=== PATIENT | female | born 1965 | race Caucasian/White ===

== ENCOUNTER → 2016-11-04 | Day surgery (SDC) | payer BC ==
[2016-10-29 13:50] VITALS: BMI 22.0
[~2016-11-04] VITALS: Ht 162.6 cm; Wt 59.1 kg
[~2016-11-04] MED LIST: ESCI1TAB10 PO; IBAN150T PO; LIDOCAINE HCL 2% 2 ML VIAL (20MG/ML) ONE; MIDAZOLAM HCL 1 MG/ML 2ML VIAL ONE; ONDANSETRON INJ 2 MG/ML 2 ML VIAL ONE; PROPOFOL IV EMULSION 10 MG/ML 20 ML VIAL IV ONE; SODIUM CHLORIDE 0.9% 500ML 500 ML IV ONE
[2016-11-04 12:55] VITALS: Ht 162.6 cm; Wt 59.1 kg
[2016-11-04 13:04] VITALS: TEMP 36.3
--- NOTE | 2016-11-04 13:04 | Endo History and Physical ---
History & Physical Date of Service: Nov 04, 2016. Chief Complaint: Screening Referring Physician: DAMION Partida History of Present Illness 50 yo CF who presents for screening colonoscopy. Past Surgical History Hx Cardiac Surgery: No Hx Internal Defibrillator: No Hx Pacemaker: No Hx Abdominal Surgery: Yes (JAMESON) Hx of Implantable Prosthesis: No Hx Post-Op Nausea and Vomiting: Yes Hx Cancer Surgery: No Hx Thoracic Surgery: No Hx Orthopedic: Yes (LT TKA, C5-6 FUSION (FULL ROM), RT FOOT S/P BREAK WITH PLATE) Hx Urinary Tract Surgery: No Family History None Social History Smoking Status: Never Smoker Hx Substance Use: No Hx Alcohol Use: No Allergies Coded Allergies: Codeine (Verified Allergy, Mild, N/V, 11/04/16) Current Medications Reported Home Medications Medications Dose Route/Sig Max Daily Dose Days Date Category Lexapro (Escitalopram Oxalate) 20 Mg Tab 20 Mg PO HS 10/29/16 Reported Boniva (Ibandronate Sodium) 150 Mg Tab 150 Mg PO MONTHLY 10/29/16 Reported Vital Signs Weight (Kilograms): 59.09 Height (Feet): 5 Height (Inches): 4 Physical Exam General Appearance: WD/WN, no apparent distress Respiratory/Chest: Auscultation: breath sounds normal Cardiovascular: Heart Auscultation: RRR Abdomen: Bowel Sounds: normal Inspection & Palpation: soft, non-distended, no tenderness, guarding & rebound Assessment and Plan Assessment: 50 yo CF who presents for screening colonoscopy. Plan: Proceed with colonoscopy.
--- NOTE | 2016-11-04 14:00 | GI REPORT ---
Procedure Date: 11/04/2016 1:38 PM Procedure: Colonoscopy Indications: Screening for colorectal malignant neoplasm Medicines: Monitored Anesthesia Care Complications: No immediate complications. Estimated Blood Loss: Estimated blood loss: none. Procedure: Pre-Anesthesia Assessment: - Prior to the procedure, a History and Physical was performed, and patient medications and allergies were reviewed. The patient's tolerance of previous anesthesia was also reviewed. The risks and benefits of the procedure and the sedation options and risks were discussed with the patient. All questions were answered, and informed consent was obtained. Prior Anticoagulants: The patient has taken no previous anticoagulant or antiplatelet agents. ASA Grade Assessment: II - A patient with mild systemic disease. After reviewing the risks and benefits, the patient was deemed in satisfactory condition to undergo the procedure. After I obtained informed consent, the scope was passed under direct vision. Throughout the procedure, the patient's blood pressure, pulse, and oxygen saturations were monitored continuously. The On-site loaner was introduced through the anus with the intention of advancing to the ileum. The scope was advanced to the transverse colon before the procedure was aborted. Medications were given. The colonoscopy was performed without difficulty. The patient tolerated the procedure well. The quality of the bowel preparation was poor. No anatomical landmarks were photographed. Findings: A large amount of semi-solid solid stool was found in the entire colon, precluding visualization. Lavage of the area was performed using a large amount, resulting in incomplete clearance with continued poor visualization. Impression: - Preparation of the colon was poor. - Stool in the entire examined colon. - No specimens collected. Recommendation: - Resume previous diet. - Continue present medications. - Repeat colonoscopy in 3 months because the bowel preparation was poor. - Return to primary care physician as previously scheduled. Adalid Ramirez DO 11/04/2016 2:00:01 PM This report has been signed electronically. Note Initiated On: 11/04/2016 1:38 PM I attest to the content of the Intraoperative Record and orders documented therein, exceptions below
--- NOTE | 2016-11-04 14:02 | Discharge Instructions ---
Endoscopy Patient Instructions Date / Procedure(s) Performed Nov 04, 2016. Colonoscopy Allergy Information Coded Allergies: Codeine (Verified Allergy, Mild, N/V, 11/04/16) Discharge Date / Findings Nov 04, 2016. Poor bowel prep Medication Instructions OK to resume all medications today as prescribed. Reported Home Medications Medications Dose Route/Sig Max Daily Dose Days Date Category Lexapro (Escitalopram Oxalate) 20 Mg Tab 20 Mg PO HS 10/29/16 Reported Boniva (Ibandronate Sodium) 150 Mg Tab 150 Mg PO MONTHLY 10/29/16 Reported Provider Instructions Activity Restrictions - No exercising or heavy lifting for 24 hours. - Do not drink alcohol the day of the procedure. - Do not drive a car or operate machinery until the day after the procedure. - Do not make any important decisions or sign important papers in 24 hours after the procedure. Following Day: - Return to full activity which may include returning to work/school. Diet Start your diet with liquids and light foods (jello, soup, juice, toast). Then eat your usual diet if not nauseated. Treatment For Common After Affects For mild abdominal pain, bloating, or excessive gas: - Rest - Eat lightly - Lie on right side Repeat colonoscopy in 3 months due to poor prep Follow-Up Information Follow-up with RENITA MARIE as scheduled Anesthesia Information What You Should Know You have had a procedure that required some medicine to reduce anxiety and discomfort. This treatment is called moderate sedation. After receiving the treatment, you may be sleepy, but you will be able to breathe on your own. The effects of the treatment may last for several hours. Follow these instructions along with Activity/Diet recommendations noted above: * Do NOT do anything where dizziness or clumsiness would be dangerous. * Rest quietly at home today, then you can be up and about tomorrow. * Have a responsible person stay with you the rest of today. * You may have had an I.V. today. If so, you may take the dressing off later today. Recommendations Call your doctor if: * Trouble breathing * Continuous vomiting for more than 24 hours * Temperature above 101 degrees * Severe abdominal pain or bloating * Pain not relieved by pain medicine ordered * There is increased drainage or redness from any incision * A large amount of rectal bleeding greater than 2-3 tablespoons. (If you had a polyp/s removed or have hemorrhoids, a small amount of blood - from the rectum is to be expected.) * You have any unanswered questions or concerns. IN THE EVENT OF A SERIOUS EMERGENCY, GO TO THE NEAREST EMERGENCY ROOM Your discharge instructions were prepared by provider Adalid Ramirez. Patient Instructions Signature Page Miriam Wayandrew Patient (or Guardian) Signature/Date: I have read and understand the instructions given to me by my caregivers. Caregiver/RN/Doctor Signature/Date: The above-named patient and/or guardian has received patient instructions on this date. + Original Patient Signature Page (only) stays with chart. Please make copy for patient.
[2016-11-04 14:21] VITALS: BP 129/65; PULSE 72; O2SAT 98
--- NOTE | 2016-11-04 14:41 | Anesthesiology Progress Note ---
Anesthesia Post Op Note Date & Time Nov 04, 2016 at 14:41 Vital Signs Pain Intensity: 0 Vital Signs Past 12 Hours Date Time Temp Pulse Resp B/P Pulse Ox O2 Delivery O2 Flow Rate FiO2 11/04/16 14:21 72 16 129/65 98 Room Air 11/04/16 14:10 76 16 126/76 97 Room Air 11/04/16 13:55 77 16 122/74 96 Room Air 11/04/16 13:04 36.3 64 16 119/72 98 Room Air Notes Mental Status: alert / awake / arousable, participated in evaluation Pt Amnestic to Procedure: Yes Nausea / Vomiting: adequately controlled Pain: adequately controlled Airway Patency, RR, SpO2: stable & adequate BP & HR: stable & adequate Hydration State: stable & adequate Anesthetic Complications: no major complications apparent
== END | disposition home or self-care (01) ==
LOC: C.GI 12:40
PROVIDERS: ATTEND Internal Medicine
DX: Z12.11 Encounter for screening for malignant neoplasm of colon (principal)

== ENCOUNTER → 2017-01-14 | Outpatient (CLI) | payer BC ==
[~2017-01-14] MED LIST changes: -LIDOCAINE HCL 2% 2 ML VIAL (20MG/ML) ONE; -MIDAZOLAM HCL 1 MG/ML 2ML VIAL ONE; -ONDANSETRON INJ 2 MG/ML 2 ML VIAL ONE; -PROPOFOL IV EMULSION 10 MG/ML 20 ML VIAL IV ONE; -SODIUM CHLORIDE 0.9% 500ML 500 ML IV ONE
[2017-01-14 17:34] LABS: BASO % 0.3 %; BASO ABS # 0.02 K/uL (0-0.2); COMPLETE YES; EOS % 1.1 %; HEMATOCRIT 40.5 % (37-47); IG% 0.1 %; LYMPH % 23.5 %; LYMPH ABS # 1.69 K/uL (1.2-3.4); MEAN CELL VOLUME 89.6 fL (80-100); MEAN CORPUSCULAR HGB CONC 32.3 g/dl (32-36); MEAN PLATELET VOLUME 9.5 fL (7.4-10.4); MONO % 11.3 %; NEUT % 63.7 %; PLATELET COUNT 491 K/uL (130-400); RED BLOOD COUNT 4.52 M/uL (4.2-5.4); WHITE BLOOD COUNT 7.18 K/uL (4.8-10.8)
== END | disposition home or self-care (01) ==
LOC: C.LABBFT 15:06
PROVIDERS: ATTEND Nurse Practitioner
DX: K90.0 Celiac disease (principal); M81.0 Age-related osteoporosis without current pathological fracture

== ENCOUNTER → 2017-12-25 | Outpatient (CLI) | payer BC ==
[~2017-12-25] MED LIST changes: +CALC600T9 PO; +CLB/200 PO; +VITAMIN B12 INJ
--- NOTE | 2017-12-25 17:13 | DIAGNOSTIC IMAGING REPORT ---
BONE SCAN 3 PHASE LIMITED CLINICAL HISTORY: 52 years-old Female presenting with LOOSE TKA. TECHNIQUE: Following the IV administration of 27 mCi of technetium 99m MDP, three-phase bone scan of the knees was performed. Anterior flow images as well as anterior and posterior blood pool phase images were acquired. Bone phase imaging of knees was performed at three hours in multiple obliquities. COMPARISON: None. FINDINGS: On initial flow imaging, symmetric radiotracer distribution within the vasculature. On subsequent blood pool phase imaging, mild asymmetric radiotracer avidity is noted adjacent to the medial and lateral femoral condylar components but not within the medullary space/subjacent to the prosthesis. Left knee arthroplasty is present. On bone phase imaging, mild periprosthetic radiotracer uptake noted subjacent to the femoral and tibial prosthetic components. Minimal uptake at the patellofemoral compartment in the right knee could suggest degenerative change at this location. IMPRESSION: 1. Periprosthetic radiotracer uptake subjacent to the femoral and tibial prosthetic components only noted on delayed imaging, which favors normal postsurgical change. Radiotracer avidity adjacent to the medial and lateral femoral condylar components on blood pool phase imaging suggests postsurgical changes in the soft tissues. No convincing evidence of loosening or infection. Electronically signed by: Elpidio Walker M.D. 12/25/2017 5:12 PM Dictated Date/Time: 12/25/2017 5:04 PM
== END | disposition home or self-care (01) ==
LOC: C.NUCL 13:02
PROVIDERS: ATTEND Orthopaedic Surgery
DX: T84.038D Mechanical loosening of other internal prosthetic joint, subsequent encounter (principal); X58.XXXD Exposure to other specified factors, subsequent encounter

== ENCOUNTER 2018-01-07 08:48 | Inpatient (IN) | payer BC ==
[2017-12-10 13:52] VITALS: BMI 25.0
--- NOTE | 2017-12-10 14:22 | PAT Medication Instructions ---
Service Date Dec 10, 2017. Current Home Medication List Calcium Carbonate-Vitamin D (Calcium + D), 1 TAB PO BID Celecoxib (CeleBREX), 200 MG PO HS Escitalopram Oxalate (Lexapro), 20 MG PO HS Ibandronate Sodium (Boniva), 150 MG PO MONTHLY [Vitamin B12], 1 DOSE INJ QMONTHLY Medication Instructions For Your Scheduled Surgery -Contact your surgeon for instructions for: Celecoxib (CeleBREX), 200 MG PO HS -Continue as directed: Ibandronate Sodium (Boniva), 150 MG PO MONTHLY [Vitamin B12], 1 DOSE INJ QMONTHLY - Hold the following medications the morning of surgery: Calcium Carbonate-Vitamin D (Calcium + D), 1 TAB PO BID - Take the following medications as scheduled the night before surgery: Escitalopram Oxalate (Lexapro), 20 MG PO HS Calcium Carbonate-Vitamin D (Calcium + D), 1 TAB PO BID If you have any questions please call us at [phone] or [phone] or [phone]
--- NOTE | 2017-12-10 15:08 | DIAGNOSTIC IMAGING REPORT ---
CHEST 2 VIEWS ROUTINE HISTORY: Preop. COMPARISON: None. FINDINGS: The lungs are clear. Cardiac silhouette is normal in size. No pleural effusions. No pneumothorax. IMPRESSION: No acute process. Electronically signed by: Carrillo Wiseman M.D. 12/10/2017 3:07 PM Dictated Date/Time: 12/10/2017 3:07 PM
[2017-12-10 15:24] LABS: BASO % 0.1 %; BASO ABS # 0.01 K/uL (0-0.2); EOS ABS # 0.08 K/uL (0-0.5); HEMATOCRIT 40.1 % (37-47); HEMOGLOBIN 13.2 g/dL (12.0-16.0); IG# 0.03 K/uL (0.00-0.02); LYMPH % 21.7 %; LYMPH ABS # 1.72 K/uL (1.2-3.4); MEAN CELL VOLUME 88.1 fL (80-100); MEAN CORPUSCULAR HGB CONC 32.9 g/dl (32-36); MEAN PLATELET VOLUME 9.1 fL (7.4-10.4); MONO % 11.1 %; MONO ABS # 0.88 K/uL (0.11-0.59); NEUT % 65.7 %; NEUT ABS # 5.21 K/uL (1.4-6.5); PLATELET COUNT 500 K/uL (130-400); RED CELL DISTRIBUTION WIDTH CV 14.5 % (11.5-14.5); RED CELL DISTRIBUTION WIDTH SD 46.7 fL (36.4-46.3); WHITE BLOOD COUNT 7.93 K/uL (4.8-10.8)
[2017-12-10 15:31] LABS: ALBUMIN 4.1 gm/dl (3.4-5.0); CALCIUM 9.4 mg/dl (8.5-10.1); CREATININE 0.8 mg/dl (0.60-1.20); POTASSIUM 4.6 mmol/L (3.5-5.1)
[2017-12-10 15:32] LABS: INR 0.9 (0.9-1.1); PTT PATIENT 25.8 SECONDS (21.0-31.0)
--- NOTE | 2018-01-01 14:34 | HISTORY & PHYSICAL EXAMINATION ---
DATE OF ADMISSION: 01/07/2018 CHIEF COMPLAINT: Painful left total knee replacement. HISTORY OF PRESENT ILLNESS: Miriam is a 52-year-old female who had her left [place] in [address] Lovell. The patient has been having increased instability and pain over the last several months. She currently rates her pain a 10/10. She has pain with her daily activities. She has limited standing and walking tolerance. Pain is worse with weightbearing activity. The patient has had NSAIDs with very little relief. She is now scheduled for left total knee poly exchange. PAST MEDICAL HISTORY: Celiac disease. She denies heart disease, diabetes or DVT. PAST SURGICAL HISTORY: Left knee replacement, cholecystectomy, C5-C6 cervical fusion, left nasal turbinectomy breast reduction, right foot surgery, and left pinky surgery. SOCIAL HISTORY: The patient denies alcohol or tobacco use. She lives in a single story home. 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 FAMILY HISTORY: Negative for DVT. MEDICATIONS: Lexapro 20 mg, Boniva 150 mg, Celebrex 200 mg. ALLERGIES: CODEINE CAUSES NAUSEA, VOMITING, AND ADHESIVE. REVIEW OF SYSTEMS: See HPI. Ten other systems reviewed, all negative. PHYSICAL EXAMINATION: VITAL SIGNS: Height 5 feet 4 inches, weight 145 pounds, BMI 25. GENERAL: This is a well-developed, well-nourished female who is alert and oriented x3. Mood and affect are appropriate. HEENT: Normocephalic, atraumatic. Mucous membranes are moist and intact. NECK: Supple without lymphadenopathy. HEART: Regular rate and rhythm without murmurs, rubs or gallops. LUNGS: Clear to auscultation without wheezes or rhonchi. ABDOMEN: Soft and nontender. Bowel sounds are equal and active. EXTREMITIES: No ecchymosis, redness or warmth. The patient has a midline incision that is well healed. She has moderate effusion. Range of motion is from 0-115 degrees. She has moderate laxity. She is neurovascularly intact with +5/5 strength. X-RAY EXAMINATION: AP and lateral views show a left total knee replacement in adequate position. She does have questionable loosening of the components. IMPRESSION: Painful left total knee replacement with poly wear. PLAN: The patient will be admitted for a left total knee poly exchange versus complete revision. We will plan on aspirin for DVT prophylaxis. The patient is requesting tramadol for postoperative pain control. She has had issues with her dressings in the past. She is requesting tg with no adhesive.
[~2018-01-07] VITALS: Ht 162.6 cm; Wt 66.2 kg
[2018-01-07] VITALS (10 sets, daily range): BP systolic 113–152; BP diastolic 76–90; PULSE 65–91; TEMP 36.5–36.9; O2SAT 95–99; Ht 162.6 cm; Wt 66.2 kg
[~2018-01-07 08:48] MED LIST changes: +ACETAMINOPHEN 500 MG TAB PO SCH; +ATROPINE SULFATE 0.1 MG/ML 5ML SYR IV PRN; +BUPIVACAINE 0.25% 30 ML VIAL ONE; +BUPIVACAINE 0.5 % 5 MG/1 ML PF 10ML VIAL ONE; +CEFAZOLIN 2000MG IV PUSH 15 ML IV SCH; +CeleBREX 200 MG CAP PO SCH; +DEXAMETHASONE 4 MG TAB PO SCH; +EpHEDrine SULFATE INJ 50 MG/ML AMP IV PRN; +FAMOTIDINE 20 MG TAB PO SCH; +FENTANYL CITRATE INJ 50 MCG/1 ML 2 ML VIAL IV PRN; +GABAPENTIN 900 MG PO SCH; +LACTATED RINGER'S 1000ML 1,000 ML IV SCH; +LACTATED RINGER'S 1000ML 500 ML IV SCH; +METOCLOPRAMIDE HCL 10 MG TAB PO SCH; +ONDANSETRON INJ 2 MG/ML 2 ML VIAL IV PRN; +ROPIVACAINE 5MG/ML 30 ML 150 MG, BUPIVACAINE 0.5% MPF INJ 30 ML, EpINEphrine HCL INJ 0.... INFIL SCH; +TRANEXAMIC ACID INJ 1,000 MG x 1 Bag Intra-Op IV SCH; +TRANEXAMIC ACID INJ 1,000 MG x 1 Bag Preop IV SCH; +VANCOMYCIN 1GM ED/ASU OMNICELL 270 ML IV SCH
--- NOTE | 2018-01-07 09:27 | History & Physical Bridge Note ---
H&P Re-Evaluation Bridge Note: I have examined the patient, reviewed the History & Physical and in the interval since the performance of the History & Physical I have noted the following changes of clinical significance: No changes noted
[2018-01-07] MEDS ORDERED: MIDAZOLAM HCL 1 MG/ML 2ML VIAL ONE ×2 (10:12)
[2018-01-07] MEDS ORDERED: FENTANYL CITRATE INJ 50 MCG/1 ML 2 ML VIAL ONE (10:12)
[2018-01-07] MEDS ORDERED: BACITRACIN 50000 UNIT VIAL ONE (11:15)
[2018-01-07] MEDS ORDERED: POVIDONE-IODINE OP SOLN 30 ML BTL ONE (11:15)
[2018-01-07] MEDS ORDERED: ORTHO JOINT ANESTHETIC ONE (11:15)
[2018-01-07] MEDS ORDERED: PROPOFOL IV EMULSION 10 MG/ML 20 ML VIAL IV ONE (12:11)
[2018-01-07] MEDS ORDERED: DEXAMETHASONE SOD INJ 4 MG/ML VIAL ONE (12:11)
[2018-01-07] MEDS ORDERED: ONDANSETRON INJ 2 MG/ML 2 ML VIAL ONE (12:11)
--- NOTE | 2018-01-07 12:56 | [facility] Post Operative Brief Note ---
Immediate Operative Summary Operative Date Jan 07, 2018. Pre-Operative Diagnosis Painful left total knee arthroplasty with instability Post-Operative Diagnosis Painful left total knee arthroplasty with instability Procedure(s) Performed Left Total Knee Poly Exchange to Scorpio size [address] Lovell Concrete Finishing Machine Operator Surgeon(s) Job Luna PA-C Estimated Blood Loss 5 cc Findings Consistent with Post-Op Diagnosis Specimens A: Explanted hardware left knee Microbiology #1- left knee synovial fluid: gram stain, anaerobic, routine culture and sensitivity-out of room at 1231 Drains None Anesthesia Type MAC Spinal Regional Complication(s) none Disposition Disposition: Recovery Room / PACU
--- NOTE | 2018-01-07 13:00 | [facility] Operative Report ---
Operative Report Operative Date Jan 07, 2018. Pre-Operative Diagnosis Painful left total knee arthroplasty with instability Post-Operative Diagnosis Painful left total knee arthroplasty with instability Procedure(s) Performed Left Total Knee Poly Exchange to Scorpio size [address] Lovell Lurer Surgeon(s) Job Luna PA-C Estimated Blood Loss 5 cc Findings Patient presents 13 year status post left total knee arthroplasty with ligamentous laxity and poly-wear of her Scorpio strike her knee no evidence of infection no inflammation preoperative lab work and preoperative bone scan would be notes of acute inflammation no evidence of any loosening of any components decision made to proceed forward with that of a poly-change possible revision pending findings clinically at the time of surgery intraoperative cultures and Gram stain were taken no evidence of intraoperative infection was noted Specimens A: Explanted hardware left knee Microbiology #1- left knee synovial fluid: gram stain, anaerobic, routine culture and sensitivity-out of room at 1231 Drains None Anesthesia Type MAC Spinal Regional Complication(s) none Disposition Recovery Room / PACU Indications Patient presents with significant ligamentous laxity from a previous greater than 10 year out total knee arthroplasty with Scorpio Renny type preoperative workup revealed no evidence of infection or loosening of implants clinical exam says that a poly-wear with ligamentous laxity low to minimal effusion with medial lateral anterior posterior laxity of the knee joint proper bone scan revealed there to be no evidence of loosening or infection process prep of labs were all within normal limits Description of Procedure After proper prepping and draping left lower extremity incision made the region of the previous incision extensor mechanism was identified a medial parapatellar incision was made to the synovectomy was performed there is no evidence of gross infection and cultures were taken as a precaution but there is clearly no evidence of anything infectious the Ernestina was clearly loose and worn after performing synovectomy the components were evaluated no evidence of tibial or femoral loosening was noted which was consistent with x-rays and preoperative bone scanning subsequently of the Ernestina was changed from a size 8 upsized to a size 15 gave excellent medial and lateral collateral ligament tension through full extension mid flexion and flexion excellent stability was noted full range of motion from 0-145 was noted subsequently was reviewed with complaints of sterile saline solution with decreased hemostasis was obtained and maintained the Ernestina was changed to a size 5 x 15 the patellar tracking was assessed was noted to be excellent after informed thorough synovectomy including cleaning of scar tissue from the gutters the wound was subsequently closed with #2 FiberWire #1 got #2 oh gut and skin clips the patient told procedure well was taken recovery in stable condition please note Job NELSON was necessary for the case participated in prepping draping retraction wound closure deep fascia subcu and skin was necessary for the case I attest to the content of the Intraoperative Record and any orders documented therein. Any exceptions are noted below.
[2018-01-07] MEDS ORDERED: BISACODYL 10 MG SUPP PR PRN (13:30)
[2018-01-07] MEDS ORDERED: ONDANSETRON INJ 2 MG/ML 2 ML VIAL IV PRN (13:30)
[2018-01-07] MEDS ORDERED: SOD PHOSPHATE/SOD BIPHOSPHATE ENEMA 132 ML BTL PR PRN (13:30)
[2018-01-07] MEDS ORDERED: ZOLPIDEM TARTRATE 5 MG TAB PO PRN (13:30)
[2018-01-07] MEDS ORDERED: VITAMIN B12 INJ SCH (13:30)
[2018-01-07] MEDS ORDERED: IBANDRONATE SODIUM 150 MG PO SCH (13:30)
[2018-01-07] MEDS ORDERED: ALUMINUM/MAGNESIUM/SIMETH (MAALOX MAX) 30 ML UDC PO PRN (13:30)
[2018-01-07] MEDS ORDERED: MoRPHine SULFATE 2 MG/ML CARP IV PRN (13:30)
[2018-01-07] MEDS ORDERED: MAGNESIUM HYDROXIDE SUSP 30 ML UDC PO PRN (13:30)
--- NOTE | 2018-01-07 14:00 | DIAGNOSTIC IMAGING REPORT ---
L KNEE 1 OR 2 VIEWS ROUTINE CLINICAL HISTORY: AP/LATERAL IN PACU LEFT KNEE joint replacement COMPARISON: None. DISCUSSION: Anatomic alignment posttotal left knee arthroplasty. Good contact between prosthetic and underlying bone. Expected soft tissue postoperative change. IMPRESSION: Anatomic alignment posttotal left knee arthroplasty. The above report was generated using voice recognition software. It may contain grammatical, syntax or spelling errors. Electronically signed by: Job Kiran M.D. 01/07/2018 1:59 PM Dictated Date/Time: 01/07/2018 1:58 PM
--- NOTE | 2018-01-07 14:21 | Anesthesiology Progress Note ---
Anesthesia Post Op Note Date & Time Jan 07, 2018 at 14:21 Vital Signs Pain Intensity: 0 Vital Signs Past 12 Hours Date Time Temp Pulse Resp B/P (MAP) Pulse Ox O2 Delivery O2 Flow Rate FiO2 01/07/18 14:05 37.3 76 14 124/80 98 Nasal Cannula 2 01/07/18 13:55 67 14 117/75 100 Nasal Cannula 2 01/07/18 13:45 65 14 121/76 100 Nasal Cannula 4 01/07/18 13:35 69 12 115/79 96 Nasal Cannula 4 01/07/18 13:28 36.8 79 12 99/86 98 Nasal Cannula 4 01/07/18 09:30 36.7 67 67 131/87 98 Room Air Notes Mental Status: alert / awake / arousable, participated in evaluation Pt Amnestic to Procedure: Yes Nausea / Vomiting: adequately controlled Pain: adequately controlled Airway Patency, RR, SpO2: stable & adequate BP & HR: stable & adequate Hydration State: stable & adequate Neuraxial Anesthesia: was administered, sensory block is resolving Anesthetic Complications: no major complications apparent
[2018-01-07] MEDS ORDERED: MoRPHine SULFATE 4 MG/ML 1 ML CARP\\VIAL IV PRN (15:00)
[2018-01-07] MEDS ORDERED: MoRPHine SULFATE 10 MG/ML CARP/VIAL IV PRN (15:15)
[2018-01-07] MEDS: CEFAZOLIN IV 1,000 MG in SYRINGE 0 ML IV SCH ×2 (15:28→22:40)
[2018-01-07] MEDS: TRAMADOL HCL 50 MG TAB PO PRN ×2 (17:55→19:14)
[2018-01-07] MEDS: ACETAMINOPHEN 500 MG TAB PO SCH (17:55)
[2018-01-07] MEDS: KETOROLAC TROMETHAMINE 30 MG/ML VIAL IV. PRN (18:55)
[2018-01-07] MEDS: D5W AND 1/2NSS + 20MEQ KCL 1,000 ML IV SCH (20:40)
[2018-01-07] MEDS: DOCUSATE SODIUM 100 MG CAP PO SCH (20:41)
[2018-01-07] MEDS: CALCIUM 600MG + VIT D 400 IU TAB PO SCH (20:41)
[2018-01-07] MEDS: ASPIRIN 81 MG ECTAB PO SCH (20:41)
[2018-01-07] MEDS: OXYCODONE HCL IR 5 MG TAB (IMMEDIATE RELEASE) PO PRN (20:41)
[2018-01-07] MEDS ORDERED: NURSING VERBAL MED ORDER ONE (21:00)
[2018-01-07] MEDS ORDERED: SENNA 8.6 MG TAB PO SCH (21:00)
[2018-01-07] MEDS ORDERED: ESCITALOPRAM OXALATE 20 MG TAB PO SCH (21:00)
[2018-01-08] MEDS: KETOROLAC TROMETHAMINE 30 MG/ML VIAL IV. PRN (01:38)
[2018-01-08] MEDS: ACETAMINOPHEN 500 MG TAB PO SCH ×2 (01:38→10:10)
[2018-01-08 02:20] VITALS: BP 145/80; PULSE 79; TEMP 36.6; O2SAT 96
[2018-01-08] MEDS: D5W AND 1/2NSS + 20MEQ KCL 1,000 ML IV SCH (06:07)
[2018-01-08] MEDS: TRAMADOL HCL 50 MG TAB PO PRN ×2 (06:08→12:37)
--- NOTE | 2018-01-08 07:11 | Orthopedic Progress Note ---
Orthopedic Progress Note Date of Service Jan 08, 2018. Subjective Post OP Day: 1 Reports: feeling well, pain controlled w PO medications, Denies: complaints, chest pain, SOB, nausea / vomiting, light headedness, calf pain Objective calves soft nontender, N/V intact, capillary refill less than 2 sec., dressing C /D/I, A&O x3, toes mobile Date Time Temp Pulse Resp B/P (MAP) Pulse Ox O2 Delivery O2 Flow Rate FiO2 01/08/18 02:20 36.6 79 16 145/80 (101) 96 Room Air 01/07/18 23:25 Room Air 01/07/18 22:50 36.8 76 16 152/89 (110) 97 Room Air 01/07/18 19:28 36.9 91 17 146/90 (108) 97 Room Air 01/07/18 17:30 36.7 86 16 116/78 (91) 95 Room Air 01/07/18 16:30 36.7 77 17 113/76 (88) 99 Room Air 01/07/18 15:32 36.5 65 16 119/80 (93) 99 Nasal Cannula 2.0 01/07/18 15:20 Nasal Cannula 2.0 01/07/18 15:00 36.6 71 16 128/81 (97) 99 Nasal Cannula 2.0 01/07/18 14:35 99 Nasal Cannula 2.0 01/07/18 14:33 36.6 72 18 121/81 (94) 98 Nasal Cannula 2.0 01/07/18 14:30 99 Nasal Cannula 2.0 01/07/18 14:05 37.3 76 14 124/80 98 Nasal Cannula 2 01/07/18 13:55 67 14 117/75 100 Nasal Cannula 2 01/07/18 13:45 65 14 121/76 100 Nasal Cannula 4 01/07/18 13:35 69 12 115/79 96 Nasal Cannula 4 01/07/18 13:28 36.8 79 12 99/86 98 Nasal Cannula 4 01/07/18 09:30 36.7 67 67 131/87 98 Room Air Laboratory Results 24 Hours: Test 01/08/18 06:34 Assessment & Plan Assessment: POD #1 s/p Left Total Knee Poly Exchange to Scorpio size 5 x 15 pt/ot dvt proph with nicolle/scd/asa will plan for OPPT when stable Discharge Planning Discharge Planning: home with oppt DVT Prophylaxis: TEDs, SCDs, ASA Therapy: Physical Therapy
--- NOTE | 2018-01-08 07:14 | Discharge Instructions ---
Discharge Instructions Date of Service Jan 08, 2018. Admission Reason for Admission: Left Knee Loose Hardware Discharge Discharge Diagnosis / Problem: Left Total Knee Poly Exchange Discharge Goals Goal(s): Decrease discomfort, Improve function, Increase independence Activity Recommendations Activity Limitations: as noted below Weightbearing Status: Left weightbearing . Instructions / Follow-Up Instructions / Follow-Up ACTIVITY RECOMMENDATIONS: SELF CARE INSTRUCTIONS AFTER TOTAL KNEE REPLACEMENT A. You may need to continue a physical therapy program after discharge from the hospital. There are several options available to you. Your doctor will assist you in selecting the best one for you. 1. An out-patient facility 2 to 3 times a week for therapy or home therapy. 2. Continue working on all exercises taught to you in the hospital. Your goals should be to increase bending of your knee to 90 degrees and beyond and to fully straighten your knee. B. You may progress at your own pace from walking with a walker or crutches to a cane; then to no assistive devices. C. Make walking a part of your daily routine. Be up as much as comfortable with rest periods throughout the day. Rest with leg elevation is very important. Use the ice wrap frequently for the first 3-4 weeks. D. There are no restrictions on activities. You may ride in a car, shop, participate in special investigator and all social activities. E. Wear the long elastic stockings (GIRISH hose) 20 hours a day for 2 weeks after surgery. They can be removed several times a day for laundering and for a bath. F. You may shower, no tub baths until cleared by your doctor. SPECIAL CARE INSTRUCTIONS: VERY IMPORTANT TO READ AND REVIEW A. There are a few signs you need to watch for after you are home. Call [facility] if you notice any of the followin. Increased severe knee pain. Some pain is expected especially when you exercise. 2. Increased swelling in your leg or knee; pain or swelling of the calf muscle in either lower leg. 3. Any fluid drainage from the incision. 4. Shortness of breath or chest pain. B. Please call [facility] [place] at if you have any concerns or questions about your operation or recovery. The doctor or his nurse will return your call promptly. C. You must take antibiotics before dental work, bladder, bowel or other surgery. Your doctor will provide you with a permanent care to carry describing this precaution. IMPORTANT: * REMEMBER TO TAKE ASPIRIN, 81 MG, TWICE DAILY FOR 4 WEEKS UNLESS OTHERWISE DIRECTED. THIS IS YOUR BLOOD THINNER. * HIGH RISK PATIENTS MAY BE PRESCRIBED A STRONGER BLOOD THINNER. THIS WILL BE PROVIDED AT DISCHARGE. * CALL IF INCREASED PAIN, REDNESS, DRAINAGE OR FEVER GREATER THAT 101. * WEAR GIRISH HOSE 20 HOURS PER DAY FOR 2 WEEKS. FOLLOW UP VISIT: If appointment is not already scheduled: Please call [facility] to make a follow-up appointment for 2 weeks after your surgery at . Current Hospital Diet Patient's current hospital diet: Regular Diet, Gluten Free Diet Discharge Diet Recommended Diet: Regular Diet, Gluten Free Diet Procedures Procedures Performed: Left Total Knee Poly Exchange to Scorpio size 5 x 15 Pending Studies Studies pending at discharge: no Laboratory Results Hemoglobin A1c Test 12/10/17 14:35 Range/Units Estimated Average Glucose 126 mg/dl Hemoglobin A1c 6.0 H 4.5-5.6 % Medical Emergencies . Who to Call and When: Medical Emergencies: If at any time you feel your situation is an emergency, please call 911 immediately. . Non-Emergent Contact Non-Emergency issues call your: Primary Care Provider, Surgeon . "Provider Documentation" section prepared by Job Luna. . [place] Drug Monitoring Program Search Results: patient reviewed within database, no issues identified
[2018-01-08] MEDS ORDERED: ASPI-320 PO (07:18)
[2018-01-08] MEDS ORDERED: RXC5 PO (07:18)
[2018-01-08] MEDS ORDERED: ONDA-170 PO (07:18)
[2018-01-08] MEDS ORDERED: ACET-24 PO (07:18)
[2018-01-08] MEDS ORDERED: CLC100 PO (07:18)
[2018-01-08] MEDS ORDERED: CLB200 PO (07:18)
[2018-01-08 07:38] VITALS: BP 142/89; PULSE 76; TEMP 36.5; O2SAT 95
[2018-01-08 07:44] LABS: CALCIUM 8.9 mg/dl (8.5-10.1); CREATININE 0.7 mg/dl (0.60-1.20); POTASSIUM 4.2 mmol/L (3.5-5.1)
[2018-01-08 07:48] LABS: HEMATOCRIT 31.6 % (37-47); HEMOGLOBIN 10.4 g/dL (12.0-16.0); MEAN CELL VOLUME 86.6 fL (80-100); MEAN CORPUSCULAR HEMOGLOBIN 28.5 pg (25-34); MEAN CORPUSCULAR HGB CONC 32.9 g/dl (32-36); MEAN PLATELET VOLUME 8.8 fL (7.4-10.4); PLATELET COUNT 427 K/uL (130-400); RED CELL DISTRIBUTION WIDTH CV 14.3 % (11.5-14.5); RED CELL DISTRIBUTION WIDTH SD 45.6 fL (36.4-46.3); WHITE BLOOD COUNT 14.58 K/uL (4.8-10.8)
[2018-01-08] MEDS ORDERED: MULTIVITAMIN TAB PO SCH (09:00)
[2018-01-08] MEDS: OXYCODONE HCL IR 5 MG TAB (IMMEDIATE RELEASE) PO PRN (09:16)
[2018-01-08] MEDS: ASPIRIN 81 MG ECTAB PO SCH (09:17)
[2018-01-08] MEDS: DOCUSATE SODIUM 100 MG CAP PO SCH (09:17)
[2018-01-08] MEDS: CALCIUM 600MG + VIT D 400 IU TAB PO SCH (09:17)
[2018-01-08 10:57] VITALS: BP 142/89; PULSE 76; TEMP 36.5; O2SAT 95
--- NOTE | 2018-01-08 11:14 | Discharge Summary ---
Orthopedic Discharge Summary Admission Date/Reason Jan 07, 2018 at 09:15 Left Knee Loose Hardware. Discharge Date/Disposition Jan 08, 2018 Home Diagnosis Principal Diagnosis: left knee pain and instability s/p left TKA Procedure(s) Performed Left Total Knee Poly Exchange to size 5 x 15 Consultations NONE Medication Reconciliation New Medications: Ondansetron Hcl (Zofran) 8 Mg Tab 8 MG PO Q8 PRN for Nausea, #20 TAB Acetaminophen (Sb Non-Aspirin Extra Stre) 500 Mg Tab 1000 MG PO Q8H, #63 TAB Aspirin (Aspirin EC Low Dose) 81 Mg Ectab 81 MG PO BID for 30 Days, #60 TAB Celecoxib (Celebrex) 200 Mg Cap 200 MG PO BID for 30 Days, #60 CAP Docusate Sodium (Docusate Sodium) 100 Mg Cap 100 MG PO BID for 10 Days, #20 CAP Oxycodone HCl (Oxycodone HCl) 5 Mg Tab 5-10 MG PO Q4H PRN for Pain, #60 TAB Continued Medications: Calcium Carbonate-Vitamin D (Calcium + D) 1 Tab Tab 1 TAB PO BID Escitalopram Oxalate (Lexapro) 20 Mg Tab 20 MG PO HS Ibandronate Sodium (Boniva) 150 Mg Tab 150 MG PO MONTHLY FIRST OF MONTH [Vitamin B12] () 1 DOSE INJ QMONTHLY Discontinued Medications: Celecoxib (CeleBREX) 200 Mg Cap 200 MG PO HS, CAP Admission Physical Exam As per Admitting History & Physical. Hospital Course Patient was a same day admission after undergoing a successful left knee poly upsize on a left TKA. she tolerated the procedure well. Post-operatively, her activity was progressed and well tolerated. Please refer to daily progress notes and PT notes for complete details. After exam on 01/08/18, patient felt to be stable for discharge with outpatient PT. Patient will f/u in the office in 2 weeks for further evaluation including x-rays and incision check, sooner if having any issues or concerns. Below are pertinent labs/studies during their hospital stay: Last Resulted CBC 01/08/18 06:34 Last Resulted BMP 01/08/18 06:34 Last Vital Signs Documentation Date Time Temp Pulse Resp B/P (MAP) Pulse Ox O2 Delivery O2 Flow Rate FiO2 01/08/18 10:57 36.5 76 16 95 Room Air 01/08/18 07:38 142/89 (106) 01/07/18 15:32 2.0 Discharge Instructions ACTIVITY RECOMMENDATIONS: SELF CARE INSTRUCTIONS AFTER TOTAL KNEE REPLACEMENT A. You may need to continue a physical therapy program after discharge from the hospital. There are several options available to you. Your doctor will assist you in selecting the best one for you. 1. An out-patient facility 2 to 3 times a week for therapy or home therapy. 2. Continue working on all exercises taught to you in the hospital. Your goals should be to increase bending of your knee to 90 degrees and beyond and to fully straighten your knee. B. You may progress at your own pace from walking with a walker or crutches to a cane; then to no assistive devices. C. Make walking a part of your daily routine. Be up as much as comfortable with rest periods throughout the day. Rest with leg elevation is very important. Use the ice wrap frequently for the first 3-4 weeks. D. There are no restrictions on activities. You may ride in a car, shop, participate in bale opener and all social activities. E. Wear the long elastic stockings (GIRISH hose) 20 hours a day for 2 weeks after surgery. They can be removed several times a day for laundering and for a bath. F. You may shower, no tub baths until cleared by your doctor. SPECIAL CARE INSTRUCTIONS: VERY IMPORTANT TO READ AND REVIEW A. There are a few signs you need to watch for after you are home. Call [facility] if you notice any of the followin. Increased severe knee pain. Some pain is expected especially when you exercise. 2. Increased swelling in your leg or knee; pain or swelling of the calf muscle in either lower leg. 3. Any fluid drainage from the incision. 4. Shortness of breath or chest pain. B. Please call [facility] at if you have any concerns or questions about your operation or recovery. The doctor or his nurse will return your call promptly. C. You must take antibiotics before dental work, bladder, bowel or other surgery. Your doctor will provide you with a permanent care to carry describing this precaution. IMPORTANT: * REMEMBER TO TAKE ASPIRIN, 81 MG, TWICE DAILY FOR 4 WEEKS UNLESS OTHERWISE DIRECTED. THIS IS YOUR BLOOD THINNER. * HIGH RISK PATIENTS MAY BE PRESCRIBED A STRONGER BLOOD THINNER. THIS WILL BE PROVIDED AT DISCHARGE. * CALL IF INCREASED PAIN, REDNESS, DRAINAGE OR FEVER GREATER THAT 101. * WEAR GIRISH HOSE 20 HOURS PER DAY FOR 2 WEEKS. FOLLOW UP VISIT: If appointment is not already scheduled: Please call [facility] to make a follow-up appointment for 2 weeks after your surgery at .
[2018-01-08 11:19] VITALS: BP 153/88; PULSE 75; TEMP 36.8; O2SAT 96
[2018-01-08] MEDS ORDERED: CeleBREX 200 MG CAP PO SCH (21:00)
== END 2018-01-08 13:30 | disposition home or self-care (01) | DRG 489 ==
LOC: C.ACU 08:48 → C.3E 09:15 → ENRESERV 14:15
PROVIDERS: ADMIT Orthopaedic Surgery; ATTEND Orthopaedic Surgery
PROC: 0SUW09Z Supplement Left Knee Joint, Tibial Surface with Liner, Open Approach (ICD-10-PCS; principal; 2018-01-07 12:00)
PROC: 0SPD09Z Removal of Liner from Left Knee Joint, Open Approach (ICD-10-PCS; principal; 2018-01-07 12:00)
DX: T84.063A Wear of articular bearing surface of internal prosthetic left knee joint, initial encounter (principal); T84.84XA Pain due to internal orthopedic prosthetic devices, implants and grafts, initial encounter; T84.023A Instability of internal left knee prosthesis, initial encounter; T84.033A Mechanical loosening of internal left knee prosthetic joint, initial encounter; Y79.2 Prosthetic and other implants, materials and accessory orthopedic devices associated with adverse incidents; M23.8X2 Other internal derangements of left knee; M25.462 Effusion, left knee; K90.0 Celiac disease; M81.0 Age-related osteoporosis without current pathological fracture; F41.9 Anxiety disorder, unspecified; Z98.1 Arthrodesis status; Z87.891 Personal history of nicotine dependence; Z79.1 Long term (current) use of non-steroidal anti-inflammatories (NSAID); Z79.83 Long term (current) use of bisphosphonates; Z79.899 Other long term (current) drug therapy; Z88.5 Allergy status to narcotic agent; Z88.8 Allergy status to other drugs, medicaments and biological substances; Z91.018 Allergy to other foods; Z91.048 Other nonmedicinal substance allergy status